=== PATIENT | female | born 1965 | race Caucasian/White ===

== ENCOUNTER 2019-06-20 07:26 | Emergency (ER) | payer OTHER ==
[~2019-06-20] VITALS: Ht 165.1 cm; Wt 83.0 kg
[2019-06-20] MEDS ORDERED: TETanus/Pertussis (Acell)/Diphther VAC/PF (Tdap-Adult) 0.5ml syringe IM ONE (08:00)
[2019-06-20] MEDS ORDERED: LIDOcaine 1% 30ml preserv. free vial IJ ONE (08:00)
[2019-06-20] MEDS ORDERED: LIDOcaine 1% w/epiNEPHrine 1:200,000 30ml vial IM ONE (08:05)
--- NOTE | 2019-06-20 08:48 | NUR ---
DR WEAVER AT BEDSIDE FOR SUTURING AFTER EVALUATION BY DR MATIAS, PLACED ADDITIONAL SUPPLIES AT BEDSIDE PER DR WEAVER REQUEST.
[2019-06-20 10:18] VITALS: BP 122/69
== END 2019-06-20 10:25 | disposition home or self-care (01) ==
LOC: ER 07:26
DX: S61.215A Laceration without foreign body of left ring finger without damage to nail, initial encounter (principal); W26.0XXA Contact with knife, initial encounter; Y93.89 Activity, other specified; Y92.89 Other specified places as the place of occurrence of the external cause; Y99.8 Other external cause status
CPT/HCPCS: 12001; 90471; 90715; 99283; J2001

== ENCOUNTER 2019-07-13 13:37 | Emergency (ER) | payer OTHER ==
[~2019-07-13] VITALS: Ht 165.1 cm; Wt 81.8 kg
[~2019-07-13 13:37] MED LIST: LIDOcaine 1% W/epiNEPHrine 1:100,000 20ml vial ONE
[2019-07-13 15:08] VITALS: BP 137/87
== END 2019-07-13 15:14 | disposition home or self-care (01) ==
LOC: ER 13:38
DX: S61.212A Laceration without foreign body of right middle finger without damage to nail, initial encounter (principal); Z98.890 Other specified postprocedural states; W26.8XXA Contact with other sharp object(s), not elsewhere classified, initial encounter; Y93.89 Activity, other specified; Y92.89 Other specified places as the place of occurrence of the external cause; Y99.8 Other external cause status
CPT/HCPCS: 12001; 99283

== ENCOUNTER 2021-02-25 07:47 | Emergency (ER) | payer OTHER ==
[~2021-02-25] VITALS: Ht 165.1 cm; Wt 91.8 kg
[2021-02-25 08:00] VITALS: BP 135/78
[2021-02-25] MEDS ORDERED: famotidine 20mg tablet PO ONE (08:20)
[2021-02-25] MEDS ORDERED: ondansetron 4mg rapidly disintigrating tab PO ONE (08:20)
[2021-02-25] MEDS ORDERED: mag hydrox/Alum hydrox/simeth 30ml oral suspension PO ONE (08:20)
[2021-02-25] MEDS ORDERED: pantoprazole 40mg Tablet.DR PO ONE (08:20)
[2021-02-25] MEDS ORDERED: LIDOcaine Viscous 15ml cup MM ONE (08:20)
[2021-02-25] MEDS ORDERED: bisacodyl 5mg tablet.DR PO ONE (08:25)
[2021-02-25] MEDS ORDERED: acetaminophen 325mg tablet PO ONE (08:25)
[2021-02-25 09:11] LABS: BASOPHILS % (AUTO) 0 % (0-1); EOSINOPHILS % (AUTO) 0 % (0-6); HEMATOCRIT 37.6 % (35.0-45.0); HEMOGLOBIN 12.4 g/dl (12.0-16.0); LYMPHOCYTES % (AUTO) 23.2 % (21-51); MEAN CORPUSCULAR HEMOGLOBIN 29.5 PG (27.0-31.0); MEAN CORPUSCULAR VOLUME 89.4 FL (78-98); MEAN PLATELET VOLUME 7.3 FL (7.4-10.4); MONOCYTES # (AUTO) 0.3 X10'3 (0-0.9); MONOCYTES % (AUTO) 7.1 % (2-12); NEUTROPHILS # (AUTO) 3.1 X10'3 (1.8-7.7); NEUTROPHILS % (AUTO) 69.7 % (42-75); PLATELET COUNT 269 X10'3 (140-440); RED CELL DISTRIBUTION WIDTH 14.4 % (11.5-14.5); WHITE BLOOD COUNT 4.5 X10'3 (4.5-11.0)
[2021-02-25 09:27] LABS: CLARITY,URINE CLEAR (Clear); COLOR,URINE YELLOW (Yellow); GLUCOSE, URINE NEGATIVE (Neg); KETONES,URINE NEGATIVE (Neg); LEUKOCYTE ESTERASE ,URINE NEGATIVE (Neg); NITRITES, URINE NEGATIVE (Neg); OCCULT BLOOD,URINE NEGATIVE (Neg); PH,URINE 5.5 (4.8-8.0); PROTEIN,URINE NEGATIVE (Neg); UROBILINOGEN,URINE 0.2 E.U/dL (0.2-1.0)
[2021-02-25 09:28] LABS: UA COLLECTION TYPE CLN CATCH MIDSTREAM
[2021-02-25 09:30] LABS: ALANINE AMINOTRANSFERASE 22 U/L (12-78); ALBUMIN 3.8 G/DL (3.4-5.0); ALBUMIN/GLOBULIN RATIO 1.2 (1.1-1.5); ALKALINE PHOSPHATASE 92 IU/L (46-116); ANION GAP 7 (8-16); ASPARTATE AMINO TRANSFERASE 13 U/L (10-37); BILIRUBIN,TOTAL 0.3 MG/DL (0.1-1.0); BLOOD UREA NITROGEN 10 MG/DL (7-18); CALCIUM 8.6 MG/DL (8.5-10.1); CHLORIDE 107 MMOL/L (99-107); GLUCOSE 85 MG/DL (70-104); LIPASE 155 U/L (73-393); POTASSIUM 4.2 MMOL/L (3.5-5.1); SODIUM 146 MMOL/L (135-145); TOTAL CARBON DIOXIDE 32.3 MMOL/L (24-32); TROPONIN I < 0.04 NG/ML (0.0-0.05); eGFR > 90 ML/MIN
[2021-02-25] MEDS ORDERED: FAMO-128 PO (09:41)
[2021-02-25] MEDS ORDERED: POLY17PO10 PO (09:41)
[2021-02-25] MEDS ORDERED: ONDA4TAB6 PO (09:41)
== END 2021-02-25 09:54 | disposition home or self-care (01) ==
LOC: ER 07:48
DX: K59.00 Constipation, unspecified (principal); K21.9 Gastro-esophageal reflux disease without esophagitis; Z98.890 Other specified postprocedural states; Z79.899 Other long term (current) drug therapy
CPT/HCPCS: 36415; 80053; 81003; 83690; 84484; 85025; 99284

== ENCOUNTER 2022-12-07 22:06 | Emergency (ER) | payer OTHER ==
[~2022-12-07] VITALS: Ht 165.1 cm; Wt 85.0 kg
[~2022-12-07 22:06] MED LIST changes: +FAMO-128 PO; -LIDOcaine 1% W/epiNEPHrine 1:100,000 20ml vial ONE; +ONDA4TAB6 PO
[2022-12-07 22:24] LABS: BASOPHILS % (AUTO) 0 % (0-1); EOSINOPHILS % (AUTO) 0.3 % (0-6); HEMOGLOBIN 12.6 g/dl (12.0-16.0); LYMPHOCYTES # (AUTO) 3.9 X10'3 (1.1-4.8); LYMPHOCYTES % (AUTO) 52.2 % (21-51); MEAN CORPUSCULAR HEMOGLOBIN 28.7 PG (27.0-31.0); MEAN CORPUSCULAR HGB CONC 34.1 g/dL (33.0-36.5); MEAN CORPUSCULAR VOLUME 84.3 FL (78-98); MEAN PLATELET VOLUME 6.5 FL (7.4-10.4); MONOCYTES # (AUTO) 0.7 X10'3 (0-0.9); MONOCYTES % (AUTO) 9.4 % (2-12); NEUTROPHILS # (AUTO) 2.9 X10'3 (1.8-7.7); NEUTROPHILS % (AUTO) 38.1 % (42-75); PLATELET COUNT 234 X10'3 (140-440); RED BLOOD COUNT 4.39 X10'6 (4.20-5.60); RED CELL DISTRIBUTION WIDTH 14.7 % (11.5-14.5); WHITE BLOOD COUNT 7.6 X10'3 (4.5-11.0)
[2022-12-07 22:37] LABS: ALANINE AMINOTRANSFERASE 41 U/L (12-78); ALBUMIN 3.7 G/DL (3.4-5.0); ALBUMIN/GLOBULIN RATIO 1.2 (1.1-1.5); ALKALINE PHOSPHATASE 92 IU/L (46-116); ANION GAP 7 (8-16); ASPARTATE AMINO TRANSFERASE 48 U/L (10-37); BILIRUBIN,TOTAL 0.4 MG/DL (0.1-1.0); BLOOD UREA NITROGEN 15 MG/DL (7-18); BUN/CREATININE RATIO 25.4 (6.6-38.0); CALCIUM 9.1 MG/DL (8.5-10.1); CHLORIDE 105 MMOL/L (99-107); CREATININE 0.59 MG/DL (0.40-0.90); GLUCOSE 112 MG/DL (70-104); POTASSIUM 3.3 MMOL/L (3.5-5.1); SODIUM 142 MMOL/L (135-145); TOTAL CARBON DIOXIDE 30.1 MMOL/L (24-32); TOTAL PROTEIN 6.8 G/DL (6.4-8.2); eGFR > 90 ML/MIN
[2022-12-07 22:45] LABS: MAGNESIUM 2.2 MG/DL (1.5-2.4)
[2022-12-07 23:05] LABS: PLATELET ESTIMATE NORMAL; TOTAL CELLS COUNTED 100
[2022-12-07] MEDS ORDERED: famotidine 20mg tablet PO ONE (23:15)
[2022-12-07] MEDS ORDERED: mag hydrox/Alum hydrox/simeth 30ml oral suspension PO ONE (23:15)
[2022-12-07] MEDS ORDERED: ondansetron 4mg rapidly disintigrating tab PO ONE (23:15)
[2022-12-07] MEDS ORDERED: LIDOcaine Viscous 15ml cup MM ONE (23:15)
[2022-12-07] MEDS ORDERED: morphine 4 MG/ML inj SYRINge IV ONE (23:45)
[2022-12-07] MEDS ORDERED: normal saline 1000ml 1,000 ML IV ONE (23:50)
[2022-12-08] MEDS ORDERED: ketorolac trometh. 30mg/ml inj. IV ONE (00:40)
[2022-12-08] MEDS ORDERED: morphine 4 MG/ML inj SYRINge IV ONE (00:40)
[2022-12-08 01:36] VITALS: BP 123/74
[2022-12-08] MEDS ORDERED: HYDR-3965 PO (02:14)
[2022-12-08] MEDS ORDERED: ONDA8TAB13 PO (02:14)
--- NOTE | 2022-12-08 02:30 | NUR ---
iv dc'd pt being discharged dressing applied
[2022-12-13] MEDS ORDERED: ALLER-CLEAR PO (11:08)
[2022-12-13] MEDS ORDERED: ESOM20CA38 PO (11:08)
[2022-12-13] MEDS ORDERED: CHOL50004 PO (11:08)
[2022-12-13] MEDS ORDERED: LEVO88TA7 PO (11:08)
[2022-12-13] MEDS ORDERED: BIOT5000 PO (11:08)
[2022-12-13] MEDS ORDERED: VENL225T3 PO (11:08)
[2022-12-13] MEDS ORDERED: LUBI24CA9 PO (11:08)
[2022-12-13] MEDS ORDERED: MAGN500C4 PO (11:08)
== END 2022-12-08 02:31 | disposition home or self-care (01) ==
LOC: ER 22:07
DX: K80.20 Calculus of gallbladder without cholecystitis without obstruction (principal); R07.89 Other chest pain; R11.0 Nausea; K21.9 Gastro-esophageal reflux disease without esophagitis; Z98.890 Other specified postprocedural states; Z79.899 Other long term (current) drug therapy
CPT/HCPCS: 36415; 76700; 80053; 83735; 83880; 84484; 85007; 85025; 93005; 96374; 96375; 99285; J1885; J2270; J7030

== ENCOUNTER 2022-12-14 06:22 | Day surgery (SDC) | payer OTHER ==
[~2022-12-14] VITALS: Ht 165.1 cm; Wt 86.4 kg
[2022-12-14] VITALS (9 sets, daily range): BP systolic 121–141; BP diastolic 68–85
[~2022-12-14 06:22] MED LIST changes: +ALLER-CLEAR PO; +BIOT5000 PO; +BUPIVAcaine 0.5% inj/PF 30 ML ONE; +CHOL50004 PO; +ESOM20CA38 PO; -FAMO-128 PO; +INDOCYANINE GREEN 25 MG/10 ML VIAL IV ONE; +LEVO88TA7 PO; +LIDOcaine 1% 30ml preserv. free vial ONE; +LUBI24CA9 PO; +MAGN500C4 PO; -ONDA4TAB6 PO; +VENL225T3 PO; +ceFAZolin inj. 2,000 MG in dextrose 5%-water 100 ML IV ONE; +famotidine 20mg tablet PO ONE; +ringers solution, lacted 1,000 ML IV SCH
[2022-12-14 07:27] LABS: ISTAT ANION GAP 10 (8-12); ISTAT BUN 6 mg/dL (7-18); ISTAT CL 102 mmol/L (99-107); ISTAT CREATININE 0.5 mg/dL (0.6-1.1); ISTAT GLUCOSE 103 mg/dL (70-104); ISTAT HGB 12.9 g/dl (12.0-16.0); ISTAT Hct 38 %PCV (35-45); ISTAT IONIZED CALCIUM 1.09 mmol/L (1.03-1.32); ISTAT NA 140 mmol/L (135-145); ISTAT TOTAL CO2 28 mmol/L (24-32); ISTAT eGFR > 90 ML/MIN
[2022-12-14] MEDS ORDERED: glycopyrrolate 0.2mg/ml inj ONE (08:30)
[2022-12-14] MEDS ORDERED: neostigmine methylsulfate 1 MG/ML 10ml vial ONE (08:30)
[2022-12-14] MEDS ORDERED: sevoflurane 250ml liquid IH ONE (08:30)
[2022-12-14] MEDS ORDERED: midazolam 1 mg/ML 2ml injection ONE (08:35)
[2022-12-14] MEDS ORDERED: fentaNYL/PF 50MCG/1 ML 2ML syringe ONE (08:35)
[2022-12-14] MEDS ORDERED: propofol inj 20 ML IV ONE (08:36)
[2022-12-14] MEDS ORDERED: rocuronium 10mg/ml inj IV ONE (08:36)
[2022-12-14] MEDS ORDERED: ondansetron/PF 4mg/2ml inj ONE (08:37)
[2022-12-14] MEDS ORDERED: LIDOcaine 2% (20mg/ml) 5ml vial ONE (08:37)
[2022-12-14] MEDS ORDERED: dexamethasone sod phosphate 4mg/ml inj. ONE (08:37)
[2022-12-14] MEDS ORDERED: LIDOcaine 1% 30ml preserv. free vial IJ ONE (09:09)
[2022-12-14] MEDS ORDERED: BUPIVAcaine 0.5% inj/PF 30 ml vial IJ ONE (09:09)
[2022-12-14] MEDS ORDERED: morphine 4 MG/ML inj SYRINge IV PRN (09:15)
[2022-12-14] MEDS ORDERED: acetaminophen 1,000mg/100ml IV 100 ML IV ONE (09:15)
[2022-12-14] MEDS ORDERED: proCHLORperazine 10 MG/2 ml inj IV PRN (09:15)
[2022-12-14] MEDS ORDERED: ondansetron/PF 4mg/2ml inj IV PRN (09:15)
[2022-12-14] MEDS ORDERED: morphine 2 MG/ML inj. syringe IV PRN (09:15)
[2022-12-14] MEDS ORDERED: ringers solution, lacted 1,000 ML IV SCH (09:15)
[2022-12-14] MEDS ORDERED: meperidine/PF 25mg/ml syringe IV PRN ×3 (09:15)
[2022-12-14] MEDS ORDERED: ketorolac trometh. 30mg/ml inj. ONE (09:27)
[2022-12-14] MEDS ORDERED: oxyCODONE/APAP 5-325mg tablet PO PRN (09:40)
--- NOTE | 2022-12-14 09:43 | NUR ---
Received from OR via [facility], accompanied by Anesthesiologist DR MATA and report given by Anesthesiolgist. PT IS GROGGY BUT RESPONDS TO VERBAL STIMULI AND ABLE TO RAY. PT PLACED ON BEDSIDE MONITOR, VSS. PT IS IN SR WITH RATE IN LOW 60'S. PT RECEIVING 8L O2 TO MASK, TOLERATING WELL WITH O2 SAT >96%. WILL TITRATE DOWN PT TOLERATES. PT HAS BANDAGE X4 TO ABD THAT ARE CDI. PT HAS 20G PIV TO RT AC WITH LR INFUSING ORDERED. PT RESTING WITH NO S/S OF DISTRESS/DISCOMFORT NOTED AT THIS TIME. PT DENIES PAIN. WILL CONTINUE TO ASSESS
--- NOTE | 2022-12-14 11:22 | NUR ---
ALL DISCHARGE CRITERIA HAS BEEN MET. VSS, PAIN AT A TOLERABLE LEVEL, AND ABLE TO SAFELY AMBULATE AND TRANSFER SELF. IV TAKEN OUT WITHOUT ANY COMPLICATIONS. ALL DISCHARGE INSTRUCTIONS COVERED WITH PATIENT AND ALL QUESTIONS ANSWERED. PATIENT TAKEN OUT VIA WHEELCHAIR TO PERSONAL VEHICLE WHERE DROVE PATIENT HOME.
== END 2022-12-14 11:00 | disposition home or self-care (01) ==
LOC: PAS 06:22
PROVIDERS: ATTEND Surgery
DX: K80.10 Calculus of gallbladder with chronic cholecystitis without obstruction (principal); F32.9 Major depressive disorder, single episode, unspecified; F41.9 Anxiety disorder, unspecified; E03.9 Hypothyroidism, unspecified; K21.9 Gastro-esophageal reflux disease without esophagitis; G47.30 Sleep apnea, unspecified; E66.01 Morbid (severe) obesity due to excess calories; Z68.30 Body mass index [BMI] 30.0-30.9, adult; Z79.899 Other long term (current) drug therapy; Z91.09 Other allergy status, other than to drugs and biological substances; Z98.890 Other specified postprocedural states
CPT/HCPCS: 47563; 80047; J0131; J0690; J1100; J1885; J2250; J2405; J2704; J2710; J3010; J3490; J7030; J7060; J7120; S0020; S2900; Z7506; Z7508; Z7512; A4215; A4618; A7000

== ENCOUNTER 2023-10-20 15:31 | Emergency (ER) | payer OTHER ==
[~2023-10-20] VITALS: Ht 166.4 cm; Wt 85.9 kg
[~2023-10-20 15:31] MED LIST changes: -BUPIVAcaine 0.5% inj/PF 30 ML ONE; -INDOCYANINE GREEN 25 MG/10 ML VIAL IV ONE; -LIDOcaine 1% 30ml preserv. free vial ONE; -ceFAZolin inj. 2,000 MG in dextrose 5%-water 100 ML IV ONE; -famotidine 20mg tablet PO ONE; -ringers solution, lacted 1,000 ML IV SCH
[2023-10-20] MEDS ORDERED: iohexol 300mg/ml 100ml inj. ONE (16:04)
[2023-10-20 16:26] LABS: BASOPHILS % (AUTO) 0.2 % (0-1); EOSINOPHILS # (AUTO) 0.1 X10'3 (0-0.9); EOSINOPHILS % (AUTO) 1.7 % (0-6); HEMATOCRIT 36.2 % (35.0-45.0); HEMOGLOBIN 12.2 g/dl (12.0-16.0); LYMPHOCYTES % (AUTO) 44.1 % (21-51); MEAN CORPUSCULAR HEMOGLOBIN 29.4 PG (27.0-31.0); MEAN CORPUSCULAR HGB CONC 33.6 g/dL (33.0-36.5); MEAN CORPUSCULAR VOLUME 87.3 FL (78-98); MEAN PLATELET VOLUME 6.8 FL (7.4-10.4); MONOCYTES # (AUTO) 0.3 X10'3 (0-0.9); MONOCYTES % (AUTO) 7.3 % (2-12); NEUTROPHILS # (AUTO) 2.1 X10'3 (1.8-7.7); NEUTROPHILS % (AUTO) 46.7 % (42-75); PLATELET COUNT 224 X10'3 (140-440); RED BLOOD COUNT 4.14 X10'6 (4.20-5.60); RED CELL DISTRIBUTION WIDTH 13.4 % (11.5-14.5); WHITE BLOOD COUNT 4.5 X10'3 (4.5-11.0)
[2023-10-20 16:37] LABS: ALANINE AMINOTRANSFERASE 15 U/L (12-78); ALBUMIN 3.6 G/DL (3.4-5.0); ALKALINE PHOSPHATASE 73 IU/L (46-116); ANION GAP 6 (8-16); ASPARTATE AMINO TRANSFERASE 13 U/L (10-37); BILIRUBIN,TOTAL 0.3 MG/DL (0.1-1.0); BLOOD UREA NITROGEN 9 MG/DL (7-18); BUN/CREATININE RATIO 15.5 (10.0-20.0); CALCIUM 8.6 MG/DL (8.5-10.1); CHLORIDE 105 MMOL/L (99-107); CREATININE 0.58 MG/DL (0.40-0.90); ETHANOL < 10 MG/DL (<10); GLUCOSE 96 MG/DL (70-104); LIPASE 42 U/L (16-77); POTASSIUM 3.8 MMOL/L (3.5-5.1); SODIUM 140 MMOL/L (135-145); TOTAL CARBON DIOXIDE 29.4 MMOL/L (24-32); TOTAL PROTEIN 7.1 G/DL (6.4-8.2); eCRCL 97 ML/MIN; eGFR > 90 ML/MIN
[2023-10-20 17:01] LABS: BILIRUBIN,URINE NEGATIVE (Neg); CLARITY,URINE CLEAR (Clear); COLOR,URINE YELLOW (Yellow); GLUCOSE, URINE NEGATIVE (Neg); KETONES,URINE NEGATIVE (Neg); LEUKOCYTE ESTERASE ,URINE SMALL (Neg); NITRITES, URINE NEGATIVE (Neg); OCCULT BLOOD,URINE NEGATIVE (Neg); PH,URINE 6.5 (4.8-8.0); PROTEIN,URINE NEGATIVE (Neg); UROBILINOGEN,URINE 0.2 E.U/dL (0.2-1.0)
[2023-10-20 17:18] LABS: UA COLLECTION TYPE CLN CATCH MIDSTREAM
[2023-10-20 18:30] LABS: SQUAMOUS EPITHELIAL CELL,UR MODERATE /LPF (FEW)
[2023-10-20 18:31] LABS: RBC,URINE 0-2 /HPF (0-2)
[2023-10-20 18:32] LABS: BACTERIA,URINE FEW /HPF (Neg)
[2023-10-20 18:45] VITALS: BP 133/80; PULSE 74; RESP 12; TEMP 98; O2SAT 97
== END 2023-10-20 18:50 | disposition home or self-care (01) ==
LOC: ER 15:31
DX: S16.1XXA Strain of muscle, fascia and tendon at neck level, initial encounter (principal); S39.012A Strain of muscle, fascia and tendon of lower back, initial encounter; S39.91XA Unspecified injury of abdomen, initial encounter; V89.2XXA Person injured in unspecified motor-vehicle accident, traffic, initial encounter; Y93.89 Activity, other specified; Y92.89 Other specified places as the place of occurrence of the external cause; Y99.8 Other external cause status
CPT/HCPCS: 36415; 70450; 71260; 72125; 74177; 80053; 80320; 81001; 83690; 85025; 99285; J3490; Q9967